=== PATIENT | female | born 1950 ===

== ENCOUNTER 2022-09-07 05:53 | Day surgery (SDC) | payer MEDICARE, OTHER ==
[2022-09-07] MEDS ORDERED: Dextrose 5%-0.45% NaCl 1,000 ML IV SCH (06:00)
[2022-09-07] MEDS ORDERED: Midazolam 1 MG/ML 2 ML SDV ONE (06:02)
[2022-09-07] MEDS ORDERED: fentaNYL 100 MCG/2 ML SDV ONE (06:02)
[2022-09-07] MEDS ORDERED: fentaNYL 100 MCG/2 ML SDV IV ONE ×2 (06:31→06:32)
[2022-09-07] MEDS ORDERED: Midazolam 1 MG/ML 2 ML SDV IV ONE ×6 (06:32→06:44)
[2022-09-07 09:27] VITALS: PULSE 61
[2022-09-07 09:28] VITALS: BP 118/70
== END 2022-09-07 09:00 | disposition home or self-care (01) ==
LOC: DL.ENDO 05:53
PROVIDERS: ATTEND Internal Medicine Gastroenterology
DX: D12.2 Benign neoplasm of ascending colon (principal); E66.09 Other obesity due to excess calories; F41.1 Generalized anxiety disorder; F32.A Depression, unspecified; K57.20 Diverticulitis of large intestine with perforation and abscess without bleeding; K57.30 Diverticulosis of large intestine without perforation or abscess without bleeding; G47.00 Insomnia, unspecified; R31.29 Other microscopic hematuria; N32.81 Overactive bladder; Z98.890 Other specified postprocedural states; Z88.2 Allergy status to sulfonamides; Z79.899 Other long term (current) drug therapy; Z68.30 Body mass index [BMI] 30.0-30.9, adult; Z90.710 Acquired absence of both cervix and uterus
CPT/HCPCS: 45385; 88305; J2250; J3010; J7042

== ENCOUNTER 2024-04-04 08:47 | Day surgery (SDC) | payer BC, MEDICARE, OTHER ==
[2024-04-04] MEDS ORDERED: Acetaminophen/Codeine 300-30 MG Tab PO PRN (09:00)
[2024-04-04] MEDS ORDERED: Acetaminophen 325 MG Tab PO PRN (09:00)
[2024-04-04] MEDS ORDERED: Ondansetron 4 MG/2 ML SDV IVPUSH PRN (09:00)
[2024-04-04] MEDS: Sodium Chloride 0.9% 10 ML Syringe FLUSH PRN (09:19)
[2024-04-04] MEDS: Povidone-Iodine 5% Sterile Ophth Soln 30 ML Bottle EYELF ONE ×2 (09:23→10:41)
[2024-04-04] MEDS: Proparacaine 0.5% Ophth Soln 15 ML Bottle EYELF ONE ×2 (09:23→10:41)
[2024-04-04] MEDS: Tropicamide 1% Ophth Soln 15 ML Bottle EYELF ONE (09:24)
[2024-04-04] MEDS: Moxifloxacin 0.5% Ophth Soln 3 ML Bottle EYELF ONE (09:24)
[2024-04-04] MEDS: Timolol Maleate 0.5% Ophth Soln 5 ML Bottle EYELF ONE (09:25)
[2024-04-04] MEDS: Phenylephrine 10% Ophth Soln 5 ML Bot EYELF ONE (09:25)
[2024-04-04] MEDS: Cataract Ophth Solution EYELF ONE (09:26)
[2024-04-04] MEDS: Dexamethasone/Tobramycin 0.1-0.3% Ophth Oint 3.5 GM Tube EYELF ONE (10:41)
[2024-04-04] MEDS: Apraclonidine 0.5% Ophth Soln 5 ML Bot EYELF ONE (10:41)
[2024-04-04] MEDS: Diclofenac Sodium 0.1% Ophth Soln 5 ML Bottle EYELF ONE (10:41)
[2024-04-04] MEDS: Lidocaine 1% 30 ML SDV ONE (10:45)
[2024-04-04] MEDS: VANCOmycin 500 MG SDV EYELF ONE (10:45)
[2024-04-04 11:29] VITALS: BP 143/80; PULSE 72
== END 2024-04-04 11:40 | disposition home or self-care (01) ==
LOC: DL.SDS 08:47
PROVIDERS: ATTEND Ophthalmology
DX: H25.812 Combined forms of age-related cataract, left eye (principal); F41.8 Other specified anxiety disorders; Z79.899 Other long term (current) drug therapy; G47.00 Insomnia, unspecified
CPT/HCPCS: 66984; A9270; J3370; V2632; J3490

== ENCOUNTER 2024-04-11 07:49 | Day surgery (SDC) | payer MEDICARE ==
[2024-04-11] MEDS ORDERED: Ondansetron 4 MG/2 ML SDV IVPUSH PRN (08:00)
[2024-04-11] MEDS ORDERED: Acetaminophen/Codeine 300-30 MG Tab PO PRN (08:00)
[2024-04-11] MEDS: Sodium Chloride 0.9% 10 ML Syringe FLUSH PRN (08:10)
[2024-04-11] MEDS: Proparacaine 0.5% Ophth Soln 15 ML Bottle EYERT ONE ×2 (08:16→09:21)
[2024-04-11] MEDS: Moxifloxacin 0.5% Ophth Soln 3 ML Bottle EYERT ONE (08:17)
[2024-04-11] MEDS: Povidone-Iodine 5% Sterile Ophth Soln 30 ML Bottle EYERT ONE ×2 (08:17→09:21)
[2024-04-11] MEDS: Tropicamide 1% Ophth Soln 15 ML Bottle EYERT ONE (08:18)
[2024-04-11] MEDS: Phenylephrine 10% Ophth Soln 5 ML Bot EYERT ONE (08:19)
[2024-04-11] MEDS: Timolol Maleate 0.5% Ophth Soln 5 ML Bottle EYERT ONE (08:20)
[2024-04-11] MEDS: Cataract Ophth Solution EYERT ONE (08:20)
[2024-04-11] MEDS: Lidocaine 1% 30 ML SDV ONE (09:28)
[2024-04-11] MEDS: VANCOmycin 500 MG SDV EYERT ONE (09:29)
[2024-04-11] MEDS: Apraclonidine 0.5% Ophth Soln 5 ML Bot EYERT ONE (09:32)
[2024-04-11] MEDS: Diclofenac Sodium 0.1% Ophth Soln 5 ML Bottle EYERT ONE (09:32)
[2024-04-11] MEDS: Dexamethasone/Tobramycin 0.1-0.3% Ophth Oint 3.5 GM Tube EYERT ONE (09:33)
[2024-04-11] MEDS: Acetaminophen 325 MG Tab PO PRN (10:18)
[2024-04-11 10:37] VITALS: BP 145/76; PULSE 66
== END 2024-04-11 10:33 | disposition home or self-care (01) ==
LOC: DL.SDS 07:49
PROVIDERS: ATTEND Ophthalmology
DX: H25.811 Combined forms of age-related cataract, right eye (principal); F41.9 Anxiety disorder, unspecified; Z79.899 Other long term (current) drug therapy
CPT/HCPCS: 66984; A9270; J3370; V2632; 00142; 99100; J3490